=== PATIENT | male | born 1940 | race Caucasian/White ===

== ENCOUNTER → 2018-01-09 12:01 | Outpatient (CLI) | payer MEDICARE, SELFPAY ==
[2018-01-09 12:38] LABS: Basophils % 0.5 % (0.1-2.0); Eosinophils # 0.2 K/mm3 (0.0-0.4); Eosinophils % 2.4 % (0.1-12.0); Hematocrit 33.8 % (42.0-52.0); Lymphocytes # 1.5 K/mm3 (0.7-4.5); Lymphocytes % 16.8 K/mm3 (10-50); Mean Corpuscular HGB Conc 32.6 g/dL (31.8-35.4); Mean Corpuscular Hemoglobin 31.8 pg (27.0-31.2); Mean Corpuscular Volume 97.7 fl (80-94); Mean Platelet Volume 6.8 fl (7.4-10.4); Monocytes # 0.5 K/mm3 (0.1-1.0); Monocytes % 5.8 % (1.7-9.3); Neutrophils # 6.5 K/mm3 (1.8-7.8); Neutrophils % 74.5 % (37.0-80.0); Platelet Count 272 K/mm3 (142-424); Red Blood Count 3.46 M/mm3 (4.60-6.20); Red Cell Distribution Width 15.5 % (11.5-17.5); White Blood Count 8.7 K/mm3 (4.8-10.8)
[2018-01-09 13:48] LABS: Anion Gap 13.5 mEq/L (5-15); Blood Urea Nitrogen 18 mg/dL (7-18); Calcium 9.6 mg/dL (8.5-10.1); Carbon Dioxide 27 mmol/L (21.0-32.0); Chloride 103 mmol/L (98-107); Creatinine,Serum 0.87 mg/dL (0.70-1.30); Estimated Glomerular Filt Rate 85 ml/min (>60); GFR (African American) 103 ML/MIN (>60); Glucose 87 mg/dL (74-106); Potassium 4.5 mmoL/L (3.5-5.1); Sodium 139 mmol/L (136-145)
== END ==
PROVIDERS: PCP Family Medicine; Visit Provider Otolaryngology
DX: Z01.818 Encounter for other preprocedural examination (principal)
CPT/HCPCS: 36415; 80048; 85025; 93005

== ENCOUNTER → 2019-11-18 08:01 | Outpatient (CLI) | payer MEDICARE, SELFPAY ==
[2019-11-18 08:27] LABS: Basophils # 0.1 K/mm3 (0-0.2); Basophils % 0.5 % (0.1-2.0); Eosinophils # 0.2 K/mm3 (0.0-0.4); Eosinophils % 2.6 % (0.1-12.0); Hemoglobin 11.7 g/dL (14.1-18.0); Lymphocytes # 1.5 K/mm3 (0.7-4.5); Lymphocytes % 17.8 % (10-50); Mean Corpuscular HGB Conc 33.3 g/dL (31.8-35.4); Mean Corpuscular Hemoglobin 33.1 pg (27.0-31.2); Mean Corpuscular Volume 99.4 fl (80-94); Mean Platelet Volume 7.8 fl (7.4-10.4); Monocytes # 0.4 K/mm3 (0.1-1.0); Monocytes % 4.3 % (1.7-9.3); Neutrophils # 6.2 K/mm3 (1.8-7.8); Neutrophils % 74.8 % (37.0-80.0); Platelet Count 213 K/mm3 (142-424); Red Blood Count 3.52 M/mm3 (4.60-6.20); Red Cell Distribution Width 15.4 % (11.5-17.5); White Blood Count 8.4 K/mm3 (4.8-10.8)
--- NOTE | 2019-11-18 08:30 | ECG_ITS ---
APPROVED REPORT Exam: Resting ECG HR:55 bpm ECG Measurements Heart Rate 55 AXES ID [id number] P -3 QRSd 96 QRS 44 QT 456 T 42 QTc 436 <Conclusion> Sinus bradycardia Otherwise normal ECG Electronically signed by : Freddy Chery, 11/18/2019 17:31:44
[2019-11-18 08:45] LABS: Chloride 105 mmol/L (98-107); Sodium 139 mmol/L (136-145)
[2019-11-18 08:48] LABS: Alanine Aminotransferase 27 U/L (12-78); Aspartate Amino Transferase 33 U/L (17-59); Blood Urea Nitrogen 20 mg/dl (9-20); Estimated Glomerular Filt Rate 93 ml/min (>60); GFR (African American) 113 ML/MIN (>60)
[2019-11-18 08:50] LABS: Albumin Level 3.9 g/dl (3.5-5.0); Albumin/Globulin Ratio 1.6 (1.1-1.8); Alkaline Phosphatase 71 U/L (38-126); Bilirubin,Total 0.4 mg/dl (0.2-1.3); Calcium 9.7 mg/dl (8.4-10.2); Carbon Dioxide 28 mmol/L (22.0-30.0); Globulin 2.5 g/dL (1.3-3.2); Glucose 94 mg/dl (74-100); Total Protein,Serum 6.4 g/dl (6.3-8.2)
[2019-11-18 09:53] LABS: Coronavirus 19 IgG Antibody Negative (Negative); Coronavirus 19 IgM Antibody Negative (Negative)
== END ==
PROVIDERS: Visit Provider Otolaryngology
DX: Z01.818 Encounter for other preprocedural examination (principal); C44.209 Unspecified malignant neoplasm of skin of left ear and external auricular canal
CPT/HCPCS: 36415; 80053; 85025; 86328; 93005

== ENCOUNTER 2019-11-19 07:42 | Day surgery (SDC) | payer MEDICARE, SELFPAY ==
[2019-11-17 15:52] VITALS: BMI 28.8
[2019-11-19 08:07] VITALS: BP 166/77; PULSE 62; RESP 18; TEMP 36.4; O2SAT 99
[2019-11-19 11:07] VITALS: BP 137/62; PULSE 60; RESP 16; TEMP 36.3; O2SAT 98
[2019-11-19 11:22] VITALS: BP 142/70; PULSE 62; RESP 16; TEMP 36.3; O2SAT 99
[2019-11-19 11:37] VITALS: BP 161/79; PULSE 60; RESP 18; TEMP 36.3; O2SAT 99
--- NOTE | 2019-11-19 11:37 | HMH.ANESCL ---
[facility] [place] Anesthesia Checklist - Patient Identification Patient Identification: Arm Band - Structural Data Admitted From: Home Planned Operative Procedure/s: excision lesions left ear, left forearm Consent for Planned Operative Procedure(s) Verified: Yes Verified Documents: Surgical Consent, History and Physical - NPO Status Verified Time NPO: 00:00 - Additional verifications Anesthesia Reactions: No Hx Blood Transfusions: No Blood Transfusion Reaction: No - Airway Assessment C-Spine Mobility Assessed: Yes (mp2) TMJ Mobility Assessed: Yes Dentition: Edentulous - Neurological Assessment Level of Consciousness: Awake, Alert - Anesthesia Plan Anesthesia Risk discussed: Yes Anesthesia Plan: Verified ASA Class: III Anesthesia Type: MAC [facility] [place] History I have reviewed the patient's past medical history: Yes Medical History: Reports:: Carotid Stenosis, Coronary Artery Disease, Hyperlipidemia, Hypertension, Myocardial Infarction, Peripheral Vascular Disease Denies:: Cancer, Diabetes Mellitus Type 1, Diabetes Mellitus Type 2, Internal Pacemaker, MRSA, Seizures *Have you ever received a pneumonia vaccine?: Yes *Have you received a flu vaccine this season?: Yes Other Medical History: Reports: Cataracts, Chemotherapy. Denies: Blood Transfusion Reaction Anesthesia experience/problems:: nac Other Surgeries: Yes: Cardiac Catheterization, Cardiac Surgery, Coronary Stent, Skin Cancer Excision, Other. No: Pacemaker Amputation: No Fractures: No - *Social History Last grade of school completed: 7th or 8th Smoking Status: Current every day smoker Tobacco Type: cigarettes # Packs/Day (cigarettes): 1 Alcohol Intake: never Substance Use Type: denies use *Occupational Status:: retired Housing: house Household Members: spouse *Travel in the last 8 weeks: None Family Hx:: Cancer, Hyperlipidemia, Hypertension
--- NOTE | 2019-11-19 12:59 | P.OP_ITS ---
Date of procedure: 11/19/19 Pre-op Diagnosis:: 1. 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 Malignant neoplasm left forearm 4 cm Post-op Diagnosis:: same Procedure performed:: 1. Excision of malignant neoplasm left ear 4.5 cm with tissue rearrangement geometric plastic repair 2. Excision of malignant neoplasm left forearm 4 cm with tissue rearrangement geometric plastic repair Surgeon:: Alberto Abdul MD SMALL ENGINE TRAINER:: Niraj Izquierdo Anesthesia: MAC Estimated blood loss (mL): 10 Operative findings:: same Operative note:: The left ear was prepped and draped. The perilesional area was infiltrated with 5 cc of 2% lidocaine with epi. The christina out was incised and the lesion was excised including subjacent cartilage. The specimen was submitted for routine examination. Bleeding was stopped with bipolar cautery. Anterior and posterior incisions were made and a tissue rearrangement geometric plastic repair was done with 4-0 nylon sutures after Surgicel snow was placed in the defect. Dermabond dressing was applied. The left arm was prepped and draped, the perilesional area was infiltrated with 4 cc of 2% lidocaine containing epinephrine.. The christina up measured 4 cm in length. The christina up was incised and the lesion was excised and submitted. A vein in the deep portions of the incision was identified and preserved. Edward perior and inferior incisions were made and a tissue rearrangement geometric plastic repair was done with interrupted 4-0 nylon sutures a Dermabond dressing was applied the patient tolerated the procedure well and was sent to recovery in good general condition. Condition: stable Disposition: PACU Complications:: none
== END 2019-11-19 11:37 | disposition home or self-care (01) ==
LOC: OR 07:44
PROVIDERS: PCP Family Medicine; Visit Provider Otolaryngology
PROC: (CPT 14020; principal; 2019-11-19 09:15)
DX: C44.629 Squamous cell carcinoma of skin of left upper limb, including shoulder (principal); C44.229 Squamous cell carcinoma of skin of left ear and external auricular canal; D21.0 Benign neoplasm of connective and other soft tissue of head, face and neck; I65.29 Occlusion and stenosis of unspecified carotid artery; I25.10 Atherosclerotic heart disease of native coronary artery without angina pectoris; E78.5 Hyperlipidemia, unspecified; I10 Essential (primary) hypertension; I73.9 Peripheral vascular disease, unspecified; Z80.9 Family history of malignant neoplasm, unspecified; Z82.49 Family history of ischemic heart disease and other diseases of the circulatory system; Z83.438 Family history of other disorder of lipoprotein metabolism and other lipidemia; Z72.0 Tobacco use
CPT/HCPCS: 14020; 14060; 88304; 88305; 96374; 96375

== ENCOUNTER → 2020-09-06 10:51 | Outpatient (POV) | payer MEDICARE, SELFPAY | PROVIDERS: Visit Provider Dermatology | DX: Z00.00 Encounter for general adult medical examination without abnormal findings (principal) ==

== ENCOUNTER → 2021-05-30 09:43 | Outpatient (POV) | payer MEDICARE, SELFPAY | PROVIDERS: Visit Provider Dermatology | DX: Z00.00 Encounter for general adult medical examination without abnormal findings (principal) ==

== ENCOUNTER → 2022-07-17 07:53 | Outpatient (POV) | payer MEDICARE, SELFPAY | PROVIDERS: Visit Provider Dermatology | DX: Z00.00 Encounter for general adult medical examination without abnormal findings (principal) ==

== ENCOUNTER 2024-08-21 08:26 | Day surgery (SDC) | payer MEDICARE, SELFPAY ==
[2024-08-20 14:40] VITALS: BMI 24.0
[2024-08-21 08:46] VITALS: BP 150/63; PULSE 72; RESP 18; TEMP 36.3; O2SAT 100
--- NOTE | 2024-08-21 09:36 | EXP.OP.NOTE ---
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 Post-op Diagnosis:: Same Procedure performed:: Excision of right parietal scalp cutaneous horn with 2 cm base Excision of mid anterior scalp complex lobulated raised lesion with 1.5 cm base Excision of right scalp/facial raised tag-like lesion lateral to right eye Note: All above excisions were completed via electrocautery with no curative intent and no attempt at closure. Surgeon:: Jorge Hays MD Anesthesia: local Estimated blood loss (mL): 15 Operative findings:: All lesions excised via electrocautery (no curative intent and no attempted closure) Operative note:: After informed consent was obtained the patient was taken to the procedure room. The right scalp/facial region was prepped and draped in a sterile fashion. The right parietal scalp cutaneous horn lesion, the mid anterior scalp lesion, and the right scalp/facial lesion were infiltrated with local anesthetic. Electrocautery was utilized to excise the lesions and also to achieve hemostasis. Dissection was taken to the deeper subcutaneous tissue. Dressings were applied and the patient was discharged home in stable condition. Condition: stable Disposition: no change Specimens:: Right parietal scalp cutaneous horn with 2 cm base Mid anterior scalp complex lobulated raised lesion with 1.5 cm base Right scalp/facial raised tag-like lesion lateral to right eye Complications:: No immediate
[2024-08-21] MEDS: LIDOCAINE 1% 20ML MDV 20 ML (09:52)
[2024-08-21 10:21] VITALS: BP 182/83; PULSE 64; RESP 18; TEMP 36.4; O2SAT 99
[2024-08-21 10:32] VITALS: BP 157/71; PULSE 65; RESP 18; TEMP 36.4; O2SAT 100
== END 2024-08-21 10:32 | disposition home or self-care (01) ==
PROVIDERS: PCP Family Medicine; Visit Provider Surgery
PROC: (CPT 11200; principal; 2024-08-21 09:30)
DX: C44.42 Squamous cell carcinoma of skin of scalp and neck (principal); L57.0 Actinic keratosis; D48.5 Neoplasm of uncertain behavior of skin; Z85.828 Personal history of other malignant neoplasm of skin; Z72.0 Tobacco use
CPT/HCPCS: 11200; 11422; 11622